=== PATIENT | male | born 1970 | race Caucasian/White ===

== ENCOUNTER 2017-01-12 16:34 | Emergency (ER) | payer SELFPAY ==
[2017-01-12 16:47] VITALS: BP 131/73
--- NOTE | 2017-01-12 17:15 | UC ---
Throat Pain/Nasal Flo HPI - HPI Summary HPI Summary: complaint of sore thaot that started yesterday nasal congestion and cough for approx 1 week intermittent headacjhes denies ear pain, fever and chills taking OTC tyelnol cold and flu without relief of throat pain - History of Current Complaint Chief Complaint: UCRespiratory Stated Complaint: SORE THROAT Time Seen by Provider: 01/12/17 16:56 Hx Obtained From: Patient - Allergies/Home Medications Allergies/Adverse Reactions: Allergies Allergy/AdvReac Type Severity Reaction Status Date / Time No Known Allergies Allergy Verified 01/12/17 16:48 Home Medications: Home Medications Nutritional Supplements [Cold and Flu Therapy Pack] 01/12/17 [History] PMH/Surg Hx/FS Hx/Imm Hx Previously Healthy: No - URI - Surgical History Surgical History: None - Family History Known Family History: Negative: Cardiac Disease, Hypertension, Diabetes - Social History Occupation: Employed Full-time Lives: With Family Alcohol Use: Occasionally Substance Use Type: Marijuana Smoking Status (MU): Heavy Every Day Tobacco Smoker Cessation Counseling: Patient Advised to Stop Review of Systems Constitutional: Negative Skin: Negative Eyes: Negative ENT: Sore Throat, Nasal Discharge Respiratory: Cough Cardiovascular: Negative Gastrointestinal: Negative Genitourinary: Negative Motor: Negative Neurovascular: Negative Musculoskeletal: Negative Neurological: Negative Psychological: Negative All Other Systems Reviewed And Are Negative: Yes Physical Exam Triage Information Reviewed: Yes Appearance: No Pain Distress, Well-Nourished, Ill-Appearing Vital Signs: Initial Vital Signs Temp 97.3 F 01/12/17 16:45 Pulse 81 01/12/17 16:45 Resp 18 01/12/17 16:45 BP 131/73 01/12/17 16:45 Pulse Ox 100 01/12/17 16:45 Vital Signs Reviewed: Yes Eyes: Positive: Conjunctiva Clear ENT: Positive: Pharyngeal erythema, Nasal congestion, Nasal drainage, TMs normal , Tonsillar swelling, Tonsillar exudate Dental: Positive: Cervical Lymphadenopathy Respiratory: Positive: No respiratory distress, No accessory muscle use, Decreased breath sounds - in the bases, Wheezing - throughout Cardiovascular: Positive: RRR, No Murmur, Pulses Normal Abdomen Description: Positive: Nontender, Soft Bowel Sounds: Positive: Present Musculoskeletal: Positive: No Edema Neurological: Positive: Alert Psychological Exam: Normal Skin Exam: Normal Throat Pain/Nasal Course/Dx - Course Course Of Treatment: exam completed. will treat for bronchitis/tonsilitis with antibiotic d/t presentation/smoker - Differential Dx/Diagnosis Differential Diagnosis/HQI/PQRI: Pharyngitis, Tonsillitis, Other - bronchitis Provider Diagnoses: bronchitis, tonsilitis Discharge - Discharge Plan Condition: Stable Disposition: HOME Prescriptions: Albuterol HFA INHALER* [Ventolin HFA Inhaler*] 2 puff INH Q4H PRN #1 mdi PRN Reason: Wheezing Amoxicillin/Clavulanate TAB* [Augmentin TAB 875*] 875 mg PO BID #20 tab Spacer/Aerosol-Holding Chamber [Aerochamber Mv] 1 mis XX Q4HR #1 mis Patient Education Materials: Sinusitis (ED), Acute Bronchitis (ED), Pharyngitis (ED) Referrals: No Primary Care Phys,NOPCP [Primary Care Provider] - [facility] [Outside] Additional Instructions: Please take antibiotic as directed Use your albuterol inhaler every 4-6 hours when needed for wheezing, shortness of breath or uncontrolled coughing. Increase fluids and rest Take acetaminophen or ibuprofen for fever or pain Please review your discharge instructions. If your symptoms do not improve please call your primary care provider or return to urgent care.
== END 2017-01-12 17:34 | disposition home or self-care (01) ==
LOC: UCEAST 16:34
DX: J40 Bronchitis, not specified as acute or chronic (principal); J03.90 Acute tonsillitis, unspecified; F17.210 Nicotine dependence, cigarettes, uncomplicated
CPT/HCPCS: 87651; 99202; G0463

== ENCOUNTER 2017-03-23 15:27 | Emergency (ER) | payer SELFPAY ==
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
[2017-03-23] MEDS ORDERED: Ondansetron INJ* 2 MG/ML VIAL IV ONE ×2 (17:32→18:00)
[2017-03-23] MEDS ORDERED: Morphine INJ* 4 MG/ML 1 ML SYRINGE IV ONE (17:32)
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
[2017-03-23] MEDS ORDERED: [UNRECOGNIZED DRUG - OTHER] IVPB ONE (17:59)
[2017-03-23] MEDS ORDERED: TAZOB IVPB ONE (17:59)
[2017-03-23] MEDS ORDERED: NS IVPB ONE (17:59)
[2017-03-23] MEDS ORDERED: HYDROmorphone* 1 MG/ML 1 ML SYR IV SLOW PU ONE (17:59)
[2017-03-23 18:26] LABS: Hematocrit 49 % (42-52); Hemoglobin 16.1 g/dl (14.0-18.0); Mean Corpuscular HGB Conc 33 g/dl (31-36); Mean Corpuscular Hemoglobin 30 pg (27-31); Mean Corpuscular Volume 90 fL (80-94); Mean Platelet Volume 8 um3 (7.4-10.4); Red Blood Count 5.41 10^6/ul (4.0-5.4); Red Cell Distribution Width 15 % (10.5-15); White Blood Count 20.8 10^3/ul (3.5-10.8)
[2017-03-23] MEDS ORDERED: NS 0.9% 1000 ML* 1,000 ML IV ONE (18:35)
[2017-03-23 18:54] LABS: Albumin 4.3 g/dL (3.2-5.2); BUN/Creatinine Ratio 7.4 (8-20); Calcium 9.3 mg/dL (8.6-10.3); EGFR African American 109.3 (>60); Globulin 3.1 g/dL (2-4); Potassium 3.8 mmol/L (3.5-5.0); Total Bilirubin 0.4 mg/dL (0.2-1.0); Total Protein 7.4 g/dL (6.4-8.9)
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
[2017-03-23 19:00] VITALS: BP 155/87
== END 2017-03-23 18:52 | disposition short-term general hospital (02) ==
LOC: ED 15:27
DX: S02.92XA Unspecified fracture of facial bones, initial encounter for closed fracture (principal); W50.0XXA Accidental hit or strike by another person, initial encounter; Y93.9 Activity, unspecified; Y92.9 Unspecified place or not applicable; H53.8 Other visual disturbances; F17.210 Nicotine dependence, cigarettes, uncomplicated
CPT/HCPCS: 36415; 70450; 70486; 72125; 80053; 85025; 96374; 96375; 99282; J1170; J2405; J2543

== ENCOUNTER 2018-01-21 09:06 | Emergency (ER) | payer OTHER ==
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
[2018-01-21] MEDS ORDERED: oxyCODONE/Acetamin 5/325 MG* TAB PO ONE (10:00)
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
[2018-01-21 10:47] VITALS: BP 122/66
== END 2018-01-21 10:46 | disposition home or self-care (01) ==
LOC: ED 09:06
DX: S62.306A Unspecified fracture of fifth metacarpal bone, right hand, initial encounter for closed fracture (principal); F17.210 Nicotine dependence, cigarettes, uncomplicated; W22.01XA Walked into wall, initial encounter; Y92.9 Unspecified place or not applicable
CPT/HCPCS: 99282; A9270-GY

== ENCOUNTER 2018-02-03 06:20 | Day surgery (SDC) | payer OTHER ==
[~2018-02-03 06:20] MED LIST: Buffered Lidocaine 0.9% SYRIN* 5 ML/SYR SYRINGE INTRADERM ONE; Dexamethasone IV* 4 MG/ML 1 ML (4 MG) IV SLOW PU ONE; Famotidine IV* 10 MG/ML 2 ML (20 mg) IV ONE
[2018-02-03] MEDS ORDERED: Famotidine TAB* 20 MG ONE (06:41)
[2018-02-03] MEDS ORDERED: ceFAZolin 2 GM PREMIX (*) 2 GM/50 ML BAG IVPB ONE (06:41)
[2018-02-03] MEDS ORDERED: Dexamethasone IV* 4 MG/ML 1 ML (4 MG) ONE (06:41)
[2018-02-03] MEDS ORDERED: Propofol* 10 MG/ML 20 ML BTL IV PUSH ONE (06:58)
[2018-02-03] MEDS ORDERED: Lidocaine 2% PF * 5 ML VIAL ONE (06:58)
[2018-02-03] MEDS ORDERED: Midazolam* 1 MG/ML 5 ML VIAL (5 MG) ONE (06:59)
[2018-02-03] MEDS ORDERED: fentaNYL* 50 MCG/ML 2 ML VIAL (100 MCG VIAL) ONE ×3 (06:59→09:49)
[2018-02-03] MEDS ORDERED: Bupivacaine 0.25% SDV* 30 ML ONE (07:04)
[2018-02-03] MEDS ORDERED: Naloxone* 0.4 MG/ML 1 ML VIAL IV PRN (07:14)
[2018-02-03] MEDS ORDERED: fentaNYL* 50 MCG/ML 2 ML VIAL (100 MCG VIAL) IV PRN (07:14)
[2018-02-03] MEDS ORDERED: oxyCODONE/Acetamin 5/325 MG* TAB PO PRN (07:14)
[2018-02-03] MEDS ORDERED: HYDROcodone/ACETAMIN 5-325 MG* 1 TAB PO PRN (07:14)
[2018-02-03] MEDS ORDERED: DiMENhydriNATE IV* 50 MG/ML VIAL IV PUSH PRN (07:14)
[2018-02-03] MEDS ORDERED: Levalbuterol 0.63MG/3ML NEB* UNIT OF USE INH PRN (07:14)
[2018-02-03] MEDS ORDERED: Ketorolac INJ* 30 MG/ML 1 ML VIAL ONE (07:48)
[2018-02-03] MEDS ORDERED: Ondansetron INJ* 2 MG/ML VIAL ONE (08:34)
[2018-02-03] MEDS ORDERED: oxyCODONE/Acetamin 5/325 MG* TAB ONE (10:30)
[2018-02-03 10:57] VITALS: BP 119/94
--- NOTE | 2018-02-03 11:56 | OP ---
DATE OF OPERATION: 02/03/18 - [facility] DATE OF : 68 SURGEON: Jonel Sarkar MD FORMULATION CHEMIST: AIME Bailey. An phlebotomist lab assistant was needed for the procedure to aide in positioning of the arm and retraction, instrumentation. ANESTHESIOLOGIST: Dr. Sylvester. ANESTHESIA: General. PRE-OP DIAGNOSIS: Right fifth metacarpal malunion. POST-OP DIAGNOSES: 1. 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 2. Right acute fifth metacarpal neck fracture. OPERATIVE PROCEDURE: 1. Repair of right fifth metacarpal base malunion with plate osteotomy and plate and screws. 2. Open reduction and internal fixation of acute right fifth metacarpal neck fracture. INDICATIONS: Jose L has a severe malunion of the fifth metacarpal base/proximal shaft. He has an acute fracture of the fifth metacarpal neck. ESTIMATED BLOOD LOSS: 2 mL. COMPLICATIONS: None. FINDINGS: See above and below. DESCRIPTION OF PROCEDURE: Jose L was seen in the preoperative holding area. The correct side, site, and procedure were identified. We came back to the operating room. The arm was prepped and draped in the usual fashion. A time- out was performed. I began by exsanguinated the arm with the Esmarch and the tourniquet was inflated to 250 mmHg. A longitudinal incision was made in line with the fifth metacarpal. Dissection was carried down. The dorsal ulnar sensory nerve was identified and protected throughout the case, it was retracted radially. The interval between the fourth and fifth dorsal compartment extensor tendons coming out to the small finger where was identified and utilized. This interval was split and dissection was carried down. The periosteum was released over the dorsum of the deformity. Full-thickness flaps were raised radially and ulnarly, exposing the dorsum of the metacarpal as well as the fifth CMC joints. The extra bone was excised with the Rialto and with the osteotome. There was a very large stepoff between the distal fragment at the base and where the base fragment was sitting in the anatomically correct location articulating with the hamate. I used the osteotome and Rialto elevator to mobilize the location. I then took quite a bit of time to using the Rialto, the osteotome, the curette, and the rongeur to excise the extra bone to get back to look at the prairie band bony edges. The distal fragment of the bone was delivered palmarly and I excised as much of the volar extra bone off as possible. At this point once I had things cleaned up that what looked like the normal bony edges, I was able to use the dental pick and traction and a little bit of rotation to reduce the fragments and then these were pinned provisionally with a 1.0 mm K-wire. At this point, I selected my 2.0 mm plate off the Synthes variable angle handset. I then snipped the last hole off of the plate. This was a little Y plate. As, I was exposing the little bit more of the dorsal fifth metacarpal shaft, I noted an acute fifth metacarpal neck fracture. I brought in the C-arm and obtained imaging. Indeed, the fracture was identified. I checked on his preoperative imaging and this sent off. I therefore needed to extend the incision in the dissection. I took a little more skin distally. I extended the split between the EDC and EDM tendons. The capsule overlying the joint was released. The plate was brought back in and it did extend distal enough to get one good screw distal to that fifth metacarpal neck fracture. At this point, I contoured my plate using the plate benders. Once I had the nice plate to bone apposition, I went ahead and secured my plate proximally with a variable angle locking screw. I then made sure my rotation was good and placed a second 2.0 cortical screw in the intercalating shaft fragment. At this point, I had my fifth metacarpal neck fracture pinned in the reduced position with a 1.0 mm K-wire. I then placed one unicortical 2.0 variable angle locking platform worker to the subchondral bone in the metacarpal head. This secured the distal fragment. At this point, all the fragments were secured, so I was able to fill the remainder of the holes with variable angle locking screws proximally into the base and rest for cortical screws. There was a very rigid fixation, everything moved as one solid fragment. The alignment looked very nice clinically and fluoroscopically. Certainly, there was some remaining bone I was not able to completely remove given the extensive extra bony formation that it occurred around the base fracture. Overall, everything was looking very nice, so we went ahead and irrigated out the wound. The capsule overlying the plate distally was closed with 4-0 Prolene suture. The periosteum was closed over the plate with 4-0 Prolene suture. There was a little bit of area over the proximal plate that simply we cannot get close to due to the correction of the deformity and a fact that we had lost some of the dorsal soft tissue with the removal of the extra bone and repair of the nonunion. The longitudinal tendons split distally were repaired with buried 4-0 Prolene [id number] sutures. The wound was again copiously irrigated out. The skin was closed with 4-0 Monocryl and Steri-Strips. The operative area was infiltrated with 0.25% Marcaine. The wounds were dressed with 4x4, sterile Webril and an ulnar gutter splint was in the intrinsic position was applied, grabbing the middle through small fingers. Tourniquet was deflated, the hand pinked up immediately. He was woken up and taken to recovery room in stable condition. [id number]/[facility] #: [id number] FAHEEM
--- NOTE | 2018-02-08 10:41 | RAD ---
CPT II Codes: G9500 INDICATION: ORIF fractured right fifth metacarpal TECHNIQUE: Intraoperative fluoroscopy was provided during ORIF of the fracture right fifth metacarpal. FINDINGS: 7 spot films depict application of a plate and screw fixator and single percutaneous pin overlying the fractured right fifth metacarpal.. Fluoroscopy time: 34 seconds IMPRESSION: As above.
== END 2018-02-03 10:57 | disposition home or self-care (01) ==
LOC: OR 06:20
PROVIDERS: ATTEND Orthopaedic Surgery Hand Surgery
DX: S62.306P Unspecified fracture of fifth metacarpal bone, right hand, subsequent encounter for fracture with malunion (principal); Z72.0 Tobacco use; S62.336A Displaced fracture of neck of fifth metacarpal bone, right hand, initial encounter for closed fracture; W19.XXXA Unspecified fall, initial encounter; Y92.9 Unspecified place or not applicable
CPT/HCPCS: 76001; A9270-GY; C1713; C1776; J0690; J1100; J1885; J2250; J2405; J2704; J3010

== ENCOUNTER 2018-04-26 19:58 | Emergency (ER) | payer SELFPAY ==
[2018-04-26] MEDS ORDERED: Tetan/Diph/Pertus SYR(Tdap)* 0.5 ML SYR(BOOSTRIX) use SYR IM ONE (20:13)
[2018-04-26] MEDS ORDERED: Morphine VIAL* 4 MG/ML VIAL (1 ml vial) IV ONE (20:13)
[2018-04-26] MEDS ORDERED: ceFAZolin 1 GM in Dextrose (*) 1 GM/50 ML BAG IVPB ONE (20:16)
[2018-04-26] MEDS ORDERED: Metoclopramide IV* 5 MG/ML 2 ML VIAL IV SLOW PU ONE (20:16)
[2018-04-26] MEDS ORDERED: Lidocaine 2% PF * 5 ML VIAL ONE (20:19)
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
[2018-04-26 21:51] VITALS: BP 118/93
== END 2018-04-26 21:52 | disposition home or self-care (01) ==
LOC: ED 19:58
DX: S56.921A Laceration of unspecified muscles, fascia and tendons at forearm level, right arm, initial encounter (principal); F17.210 Nicotine dependence, cigarettes, uncomplicated; W25.XXXA Contact with sharp glass, initial encounter; Y92.9 Unspecified place or not applicable; Z23 Encounter for immunization
CPT/HCPCS: 12034; 90471; 90715; 96365; 96375; 99284; J0690; J2270; J2765